=== PATIENT | male | born 1950 | race Caucasian/White ===

== ENCOUNTER → 2017-07-25 | Emergency (ER) | payer OTHER ==
[~2017-07-25] VITALS: Ht 152.4 cm; Wt 74.8 kg
[~2017-07-25] MED LIST: CARDURA XL4 MG; CELEXA20 MG; LIBRAX; LIPITOR20 MG; LOVAZA1 GM; RISPERDAL0.25 MG; SYNTHROID50 MCG; XANAX XR0.5 MG
== END | disposition home or self-care (01) ==
LOC: ER 10:01
DX: M54.5 Low back pain (principal)

== ENCOUNTER 2017-08-11 09:45 | Inpatient (IN) | payer OTHER ==
[~2017-08-11] VITALS: Ht 162.6 cm; Wt 72.6 kg
[~2017-08-11 09:45] MED LIST changes: -SYNTHROID50 MCG; +SYNTHROID50 MCG PO
== END 2017-08-20 11:35 | disposition home or self-care (01) | DRG 708 ==
LOC: SURH 08-18 05:52 → O/R 08-18 05:52 → SURH 08-18 07:00
PROVIDERS: Urology
PROC: 07TC0ZZ Resection of Pelvis Lymphatic, Open Approach (ICD-10-PCS; 2017-08-18)
PROC: 0VT30ZZ Resection of Bilateral Seminal Vesicles, Open Approach (ICD-10-PCS; 2017-08-18)
PROC: 0VT00ZZ Resection of Prostate, Open Approach (ICD-10-PCS; principal; 2017-08-18 07:00)
DX: C61 Malignant neoplasm of prostate (principal); M54.5 Low back pain

== ENCOUNTER 2021-06-12 11:11 | Emergency (ER) | payer OTHER ==
[~2021-06-12] VITALS: Ht 162.6 cm; Wt 72.6 kg
[2021-06-12] MEDS ORDERED: SKELAGESIC PO (14:18)
[2021-06-12] MEDS ORDERED: DICLOFENAC POTA50 MG PO (14:18)
[2021-06-12] MEDS ORDERED: CYCLOBENZAPRINE10 MG PO (14:18)
== END 2021-06-12 14:54 | disposition home or self-care (01) ==
LOC: ER 11:11
DX: M54.59 Other low back pain (principal)

== ENCOUNTER 2021-11-19 10:12 | Emergency (ER) | payer OTHER ==
[~2021-11-19] VITALS: Ht 162.6 cm; Wt 77.1 kg
[~2021-11-19 10:12] MED LIST changes: +CYCLOBENZAPRINE10 MG PO; +DICLOFENAC POTA50 MG PO; +SKELAGESIC PO
[2021-11-19] MEDS ORDERED: LISINOPRIL20 MG PO (10:25)
[2021-11-19] MEDS ORDERED: PROCTOCREAM-HC30 GM RC (10:26)
[2021-11-19] MEDS ORDERED: SYNTHROID75 MCG PO (10:26)
[2021-11-19] MEDS ORDERED: ZYPREXA20 MG PO (10:28)
== END 2021-11-19 12:22 | disposition home or self-care (01) ==
LOC: ER 10:12
DX: B34.8 Other viral infections of unspecified site (principal); Z20.822 Contact with and (suspected) exposure to COVID-19

== ENCOUNTER 2022-06-18 19:55 | Emergency (ER) | payer OTHER ==
[~2022-06-18] VITALS: Ht 162.6 cm; Wt 72.6 kg
[~2022-06-18 19:55] MED LIST changes: +LISINOPRIL20 MG PO; +PROCTOCREAM-HC30 GM RC; +SYNTHROID75 MCG PO; +ZYPREXA20 MG PO
[2022-06-18] MEDS ORDERED: GLUMETZA500 MG (22:40)
[2022-06-19] MEDS ORDERED: ORPHENADRINE C100 MG PO (01:08)
[2022-06-19] MEDS ORDERED: NABUMETONE750 MG PO (01:08)
== END 2022-06-19 01:12 ==
LOC: ER 19:55
DX: M54.50 Low back pain, unspecified (principal)

== ENCOUNTER 2023-03-19 15:31 | Emergency (ER) | payer OTHER ==
[~2023-03-19] VITALS: Ht 162.6 cm; Wt 72.1 kg
[~2023-03-19 15:31] MED LIST changes: +GLUMETZA500 MG; +NABUMETONE750 MG PO; +ORPHENADRINE C100 MG PO
[2023-03-19] MEDS ORDERED: SYNTHROID75 MCG PO (15:45)
[2023-03-19] MEDS ORDERED: ROSUVASTATIN CA20 MG PO (15:45)
[2023-03-19] MEDS ORDERED: FARXIGA10 MG PO (15:45)
[2023-03-19] MEDS ORDERED: LISINOPRIL20 MG PO (15:45)
[2023-03-19] MEDS ORDERED: MOBIC7.5 MG PO (17:46)
[2023-03-19] MEDS ORDERED: CLEOCIN HCL300 MG PO (17:46)
== END 2023-03-19 17:55 | disposition home or self-care (01) ==
LOC: ER 15:31
PROVIDERS: General Practice
DX: L03.012 Cellulitis of left finger (principal); E11.9 Type 2 diabetes mellitus without complications; I10 Essential (primary) hypertension
CPT/HCPCS: 36415; 96372; 99284; J1885

== ENCOUNTER 2023-10-25 04:30 | Emergency (ER) | payer OTHER ==
[~2023-10-25] VITALS: Ht 162.6 cm; Wt 68.0 kg
[~2023-10-25 04:30] MED LIST changes: +CLEOCIN HCL300 MG PO; +FARXIGA10 MG PO; +MOBIC7.5 MG PO; +ROSUVASTATIN CA20 MG PO
[2023-10-25] MEDS ORDERED: KETOROLAC TROMETHAMINE 60 MG VIAL IM STA (05:04)
== END 2023-10-25 05:43 ==
LOC: ER 04:30
DX: S79.811A Other specified injuries of right hip, initial encounter (principal); W19.XXXA Unspecified fall, initial encounter; Y93.89 Activity, other specified; Y92.098 Other place in other non-institutional residence as the place of occurrence of the external cause; Y99.8 Other external cause status; I10 Essential (primary) hypertension; E03.8 Other specified hypothyroidism; E11.9 Type 2 diabetes mellitus without complications
CPT/HCPCS: 73521; 96372; 99283; J1885

== ENCOUNTER 2024-06-12 07:34 | Emergency (ER) | payer OTHER ==
[~2024-06-12] VITALS: Ht 162.6 cm; Wt 68.0 kg
[2024-06-12] MEDS ORDERED: LOVAZA1 GM PO (07:52)
[2024-06-12] MEDS ORDERED: KETOROLAC TROMETHAMINE 15 MG VIAL IM STA (08:23)
== END 2024-06-12 09:06 | disposition home or self-care (01) ==
LOC: ER 07:36
DX: M54.9 Dorsalgia, unspecified (principal)
CPT/HCPCS: 96372; 99282; J1885

== ENCOUNTER 2024-08-18 07:15 | Outpatient (CLI) | payer OTHER ==
[~2024-08-18 07:15] MED LIST changes: +LOVAZA1 GM PO
== END 2024-08-18 07:16 | disposition home or self-care (01) ==
LOC: NUCLEAR 07:15
PROVIDERS: ATTEND Internal Medicine
DX: I20.9 Angina pectoris, unspecified (principal)
CPT/HCPCS: 78452; 93017; A9500

== ENCOUNTER 2025-05-19 15:26 | Emergency (ER) | payer OTHER ==
[~2025-05-19] VITALS: Ht 162.6 cm; Wt 67.6 kg
[2025-05-19] MEDS ORDERED: TRAMADOL HCL 50 MG TABLET PO ONE (16:00)
[2025-05-19] MEDS ORDERED: NORFLEX100MG PO (16:59)
== END 2025-05-19 19:31 | disposition home or self-care (01) ==
LOC: ER 15:26
DX: S89.81XA Other specified injuries of right lower leg, initial encounter (principal); X50.9XXA Other and unspecified overexertion or strenuous movements or postures, initial encounter; Y93.89 Activity, other specified; Y92.89 Other specified places as the place of occurrence of the external cause; Z85.46 Personal history of malignant neoplasm of prostate

== ENCOUNTER 2025-06-11 06:39 | Outpatient (CLI) | payer OTHER ==
[~2025-06-11] VITALS: Ht 162.6 cm; Wt 63.0 kg
[~2025-06-11 06:39] MED LIST changes: +NORFLEX100MG PO
[2025-06-11 07:33] VITALS: BP 119/70
[2025-06-11 08:20] LABS: BASO % 0.7 % (0.1-1.2); EOS # 0.17 (0.04-0.54); EOS % 3.2 % (0.7-7.0); LYMPH # 0.78 (1.18-3.74); LYMPH % 14.6 % (19.3-53.1); MEAN PLATELET VOLUME 11.90 fl (9.4-12.4); MONO # 0.53 (0.24-0.82); MONO % 9.9 % (4.7-12.5); NEUT # 3.81 (1.56-6.13); NEUT % 71.2 % (34.0-71.1); RED CELL DISTRIBUTION WIDTH 13.9 % (11.6-14.4)
[2025-06-11 08:51] LABS: INR 1.02
[2025-06-11 08:55] LABS: URINE APPEARANCE Clear; URINE BILIRRUBIN Negative (NEGATIVE); URINE BLOOD Negative; URINE COLOR Yellow; URINE KETONE Negative (NEGATIVE); URINE LEUKOCYTE Negative; URINE NITRATE Negative; URINE PROTEIN Negative (NEGATIVE); URINE UROBILINOGEN 0.2 E.U./dl
[2025-06-11 08:58] LABS: URINE BACTERIA 0 uL (0.0-1933); URINE CAST 0.14 uL (0.0-1.40); URINE EPITHELIAL CELLS 0.7 uL (0.0-38.8); URINE GLUCOSE >=1000 MG/DL (NEGATIVE); URINE RBC 0.7 uL (0.0-20.8); URINE WBC 0.3 uL (0.0-23.2)
[2025-06-11 09:06] LABS: COL ADP 117.0 SECONDS (56-102); COL EPI 279.0 SECONDS (82-175)
[2025-06-11 09:08] LABS: ALT/SGPT 22.0 U/L (12-78); AST/SGOT 19.0 U/L (15-37); BILIRUBIN TOTAL 0.53 mg/dL (0.3-1.2); BUN CREA RATIO 25.0 (7.0-25.0); CREATININE SERUM 0.92 mg/dL (0.70-1.30); GFR 80.2; GLOBULINA 2.7 G/DL (2.4-3.5); GLUCOSE FASTING 96.0 mg/dL (65-100); OSMOLALITY SERUM 292.0 MOSM/KG (275-295)
[2025-06-12] MEDS ORDERED: PREVACID30 M1 PO (13:15)
[2025-06-12] MEDS ORDERED: NEURONTIN300 MG PO (13:15)
[2025-06-12] MEDS ORDERED: RISPERDAL25 MG/2 M1 IM (13:15)
[2025-06-12] MEDS ORDERED: VITAMIN D-40010 MCG (13:16)
[2025-06-12] MEDS ORDERED: ASA81 MG PO (13:16)
[2025-06-12] MEDS ORDERED: MAGNESIUM250 MG PO (13:17)
== END 2025-06-11 06:51 | disposition home or self-care (01) ==
LOC: LAB 06:39
PROVIDERS: ATTEND Orthopaedic Surgery
DX: D64.9 Anemia, unspecified (principal); E88.9 Metabolic disorder, unspecified; D68.8 Other specified coagulation defects; N39.0 Urinary tract infection, site not specified; Z22.322 Carrier or suspected carrier of Methicillin resistant Staphylococcus aureus; I10 Essential (primary) hypertension; Z76.89 Persons encountering health services in other specified circumstances

== ENCOUNTER 2025-06-18 08:00 | Day surgery (SDC) | payer OTHER ==
[~2025-06-18 08:00] MED LIST changes: +ASA81 MG PO; +MAGNESIUM250 MG PO; +NEURONTIN300 MG PO; +PREVACID30 M1 PO; +RISPERDAL25 MG/2 M1 IM; +VITAMIN D-40010 MCG
[2025-06-18] MEDS ORDERED: EPINEPHRINE HCL/PF 1 MG/ML AMPUL IR ONE (08:15)
[2025-06-18] MEDS ORDERED: LIDOCAINE HCL 1%/EPINEPHRINE 20ML VIAL IJ ONE (08:15)
[2025-06-18] MEDS ORDERED: BUPIVACAINE HCL 30 ML VIAL IJ ONE (08:15)
[2025-06-18] MEDS ORDERED: CIPROFLOXACIN IN 5 % DEXTROSE 400 MG/200 ML PIGGYBAG IV ONE (08:15)
== END 2025-06-18 15:20 | disposition home or self-care (01) ==
LOC: CIR.AMB 08:00
PROVIDERS: ATTEND Orthopaedic Surgery
DX: M23.321 Other meniscus derangements, posterior horn of medial meniscus, right knee (principal); M65.861 Other synovitis and tenosynovitis, right lower leg; M94.261 Chondromalacia, right knee